=== PATIENT | female | born 1960 | race Caucasian/White ===

== ENCOUNTER 2017-02-14 07:46 | Day surgery (SDC) | payer OTHER ==
[~2017-02-14] VITALS: Ht 165.1 cm; Wt 115.8 kg
[2017-02-14] VITALS (11 sets, daily range): BP systolic 102–136; BP diastolic 70–83; PULSE 62–70; RESP 13–25; Ht 165.1 cm; Wt 115.8 kg
[~2017-02-14 07:46] MED LIST: LACTATED RINGER'S 1,000 ML IV* SCH
[2017-02-14] MEDS ORDERED: LOSA50TA6 PO (08:48)
[2017-02-14] MEDS ORDERED: ONDANSETRON 4 MG INJ ONE (09:20)
[2017-02-14] MEDS ORDERED: DEXAMETHASONE 4 MG/ML 1 ML INJ ONE (09:20)
[2017-02-14] MEDS ORDERED: FENTAnyl 50 MCG/ML VIAL ONE (09:20)
[2017-02-14] MEDS ORDERED: METOCLOPRAMIDE 10 MG INJ ONE (09:20)
[2017-02-14] MEDS ORDERED: ACETAMINOPHEN 1000MG/100ML IV 100 ML ONE (09:20)
[2017-02-14] MEDS ORDERED: CEFAZOLIN 1 GM INJ ONE (09:20)
[2017-02-14] MEDS ORDERED: MIDAZOLAM 1 MG/ML 2 ML INJ ONE (09:20)
[2017-02-14] MEDS ORDERED: PROPOFOL 20 ML ONE ×2 (09:20→09:48)
--- NOTE | 2017-02-14 09:34 | HPN ---
Date/Time of Note Date/Time of Note DATE: 02/14/17 TIME: 09:34 Interval H&P Admission Note Pt. seen H&P reviewed: No system changes ALBINA HARMON MD Feb 14, 2017 09:34
[2017-02-14] MEDS ORDERED: FENTAnyl 50 MCG/ML VIAL IV PRN ×3 (10:00)
[2017-02-14] MEDS ORDERED: ONDANSETRON 4 MG INJ IV PRN (10:00)
[2017-02-14] MEDS ORDERED: MEPERIDINE 25 MG INJ IV PRN (10:00)
[2017-02-14] MEDS ORDERED: hydrALAzine 20 MG INJ IV PRN (10:00)
[2017-02-14] MEDS ORDERED: LABETALOL HCL 20MG INJ IV PRN (10:00)
[2017-02-14] MEDS ORDERED: KETOROLAC 30 MG INJ ONE (10:17)
--- NOTE | 2017-02-14 10:29 | SIPON ---
Date/Time of Note Date/Time of Note DATE: 02/14/17 TIME: 10:27 Operative Report Preoperative Diagnosis uterine fibroids prominent endometrium Postoperative Diagnosis see path Operation/Procedure Performed HSC ecc uterine curettage Surgeon see signature line orthopaedic physician assistant buzz from true clear Anesthesia: general Estimated blood loss: minimal Transfusion Required none Specimen ecc uterine curettings Grafts/Implants none Complications none ALBINA HARMON MD Feb 14, 2017 10:29
--- NOTE | 2017-02-14 10:30 | PD.PPDC ---
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
--- NOTE | 2017-02-19 19:07 | OPR ---
DATE OF OPERATION: 02/14/2017 PREOPERATIVE DIAGNOSIS: Uterine fibroid, prominent endometrium for a postmenopausal patient. POSTOPERATIVE DIAGNOSIS: See pathological report and uterine fibroid, prominent endometrium for a p ostmenopausal patient. OPERATION PERFORMED: Hysteroscope and endocervical curettage and uterine curettage. SURGEON: Oseas Harrison MD DIRECTOR DIGITAL COMMUNICATIONS: Markus from [facility]. ANESTHESIA: General. ANESTHESIOLOGIST: Refer to the chart. ESTIMATED BLOOD LOSS: Minimal. PROCEDURE: Under the proper induction of general anesthesia, the patient was placed in dorsal litho anusha position. Perineal area and vagina wall was prepped and draped in usual aseptic manner. On in spection, external genitalia revealed no gross abnormality. On bimanual examination, uterus was in largest, approximately 8 weeks of gestational size. Surface smooth and freely mobile. There was no palpable adnexal pathology. Weighted speculum introduced into the vagina and anterior cervix was g rasped with a single tooth tenaculum, and the size 6 hysteroscope was introduced into the endocervic al canal without any difficulty after the usual preparation. The endocervical canal was seen and no abnormal finding. The hysteroscope was further inserted and the fundus was visualized. There was a little protrusion, most likely from the intramural fibroid, and the cavity was approximately 8.5 c m prior to hysteroscope being introduced. Then, resectoscope was introduced and the entire cavity w as curetted, which was supposed to be prominent, according to the ultrasound, but actual finding of the endometrium is more . The entire cavity was curetted with resectoscope and all of the tiss ue was in the retrieval. No bleeder was noted. No other lesion in the cavity except that protrusio n on the fundus, most likely due to intramural fibroid. Both ostium were visualized prior to the cu rettage. Procedure was completed. All the instruments were removed from the uterine cavity. The f luid deficit was approximately 20 mL. All the instrument count and sponge count correct. The patie nt withstood procedure well and was sent to recovery room in stable condition. Dictated By: OSEAS DOZIER/ANAND Conf#: [id number] DID#: [id number]
== END 2017-02-14 11:58 | disposition home or self-care (01) ==
LOC: SDS 07:46
PROVIDERS: ATTEND Obstetrics & Gynecology
DX: N87.0 Mild cervical dysplasia (principal); I10 Essential (primary) hypertension; E66.01 Morbid (severe) obesity due to excess calories; Z68.41 Body mass index [BMI] 40.0-44.9, adult
CPT/HCPCS: 58558; 84703; 88305; J0131; J0690; J1100; J1885; J2250; J2405; J2765; J3010; Z7512; Z7610

== ENCOUNTER 2017-09-15 05:48 | Emergency (ER) | END 2017-09-15 08:45 | disposition home or self-care (01) ==

== ENCOUNTER 2018-07-27 19:45 | Emergency (ER) | payer OTHER ==
[~2018-07-27] VITALS: Ht 160 cm; Wt 121.5 kg
[~2018-07-27 19:45] MED LIST changes: +CARI350T PO; +IBUP-1542 PO; -LACTATED RINGER'S 1,000 ML IV* SCH; +LOSA50TA14 PO
[2018-07-27 19:49] VITALS: BP 181/90; PULSE 99; RESP 19; Ht 160 cm; Wt 121.5 kg
[2018-07-27] MEDS ORDERED: CARB-155 BOTH EARS (21:12)
[2018-07-27] MEDS ORDERED: AMOX1TAB10 PO (21:12)
--- NOTE | 2018-07-27 21:19 | ERD ---
ER Documentation Chief Complaint Chief Complaint RIGHT EAR PAIN WITH ST X3DAYS HPI 58-year-old female past medical history hypertension presents for right ear pain x3 days. There is also associated sore throat. She denies fevers or cough. The right ear pain is rated 7 out of 10, noted to be constant, described as a sharp pain. No treatments tried at home. No other modifying factors noted. She denies chest pain or shortness of breath. Denies abdominal pain, nausea, vomiting. ROS All systems reviewed and are negative except as per history of present illness. Medications Home Meds Active Scripts Amoxicillin/Potassium Clav (Amox-Clav 875-125 mg Tablet) 875-125 mg Tab, 1 TAB PO BID for ear infection for 7 Days, #14 TAB Prov:JOYCE SOARES DO 07/27/18 Carbamide Peroxide* (Debrox*) 6.5% -15 Ml Drops, 10 DROP BOTH EARS BID PRN for cerumen impaction for 5 Days, #1 BOTTLE Prov:JOYCE SOARES DO 07/27/18 Carisoprodol* (Soma*) 350 Mg Tablet, 350 MG PO TID PRN for MUSCLE SPASMS, #15 TAB Prov:DASHA BERNAL MD 09/15/17 Ibuprofen* (Motrin*) 600 Mg Tab, 600 MG PO Q8 PRN for PAIN AND/OR INFLAMMATION, #30 TAB Prov:DASHA BERNAL MD 09/15/17 Reported Medications Losartan Potassium* (Losartan Potassium*) 50 Mg Tablet, 50 MG PO DAILY, TAB 02/14/17 Allergies Allergies: Coded Allergies: No Known Allergy (Unverified , 02/14/17) PMhx/Soc History of Surgery: Yes (D/C) Anesthesia Reaction: No Hx Neurological Disorder: No Hx Respiratory Disorders: No Hx Cardiac Disorders: Yes (HTN) Hx Psychiatric Problems: No Hx Miscellaneous Medical Probl: Yes (pre-diabetes) Hx Alcohol Use: No Hx Substance Use: No Hx Tobacco Use: No Physical Exam Vitals Vital Signs Date Temp Pulse Resp B/P (MAP) Pulse Ox O2 O2 Flow FiO2 Time Delivery Rate 07/27/18 176/90 21:05 (118) 07/27/18 97.9 99 19 181/90 98 19:49 (120) Physical Exam Const: No acute distress Head: Atraumatic Eyes: Normal Conjunctiva ENT: Bilateral ear cerumen noted with right ear tympanic membrane with some bulging and erythema noted, Nose and Mouth examination normal. Neck: Full range of motion. No meningismus. Resp: Clear to auscultation bilaterally Cardio: Regular rate and rhythm, no murmurs Skin: No petechiae or rashes Ext: No cyanosis, or edema Neur: Awake and alert Psych: Normal Mood and Affect Procedures/MDM Medical Decision Making: Differential diagnosis includes but not limited to cerumen impaction, otitis media, otitis externa Patient appeared well on physical exam. Right ear examination consistent with a otitis media Prescription(s): Patient given prescription for supportive medication(s) and Augmentin. Patient did have a elevated blood pressure of 180/90. Patient was however asymptomatic in regards to her blood pressure. She does have history of hypertension. She states that she did not take her medications today because she is in the ER. Patient advised to take her medications when she gets home. Patient advised to follow up with PCP in 1-2 days. Patient advised to return to ED for new or worsening symptoms. Patient stable on discharge from the ED. Disclaimer: Inadvertent spelling and grammatical errors are likely due to EHR/dictation software use and do not reflect on the overall quality of patient care. Also, please note that the electronic time recorded on this note does not necessarily reflect the actual time of the patient encounter. Departure Diagnosis: Primary Impression: Right ear pain Condition: Fair Patient Instructions: Cerumen Impaction, Home Care, Otitis Media, Abx Tx (Adult) Referrals: DONA SALAMANCA (PCP) Additional Instructions: Llame al doctor NANCY y philippe estela MAGGIE PARA DENTRO DE 1-2 LOO.Dgale a la secretaria que nosotros le instruimos hacer esta maggie.Avise o llame si rust condicin se empeora antes de la maggie. Regresa aqui si peor o no mejor. JOYCE SOARES DO Jul 27, 2018 21:19
== END 2018-07-27 21:15 | disposition home or self-care (01) ==
LOC: FTE 19:45 → E/R 21:15
DX: H92.01 Otalgia, right ear (principal); I10 Essential (primary) hypertension
CPT/HCPCS: 99283